=== PATIENT | female | born 1990 | race American Indian/Alaskan Native ===

== ENCOUNTER 2017-10-04 05:08 | Emergency (ER) | payer MEDICAID ==
[2017-10-04] MEDS ORDERED: NACL 0.9% 1000 ML 1,000 ML IV ONE (05:33)
[2017-10-04 06:06] LABS: Amorphous Crystals,Urine Few; Bilirubin,Urine NEG (Negative); Blood,Urine SM (Negative); Color,Urine Straw (Yellow); Mucus,Urine FEW /HPF; Protein,Urine <15 mg/dL mg/dL (Negative); RBC,Urine < 1.0 /HPF (0.0-6.0)
--- NOTE | 2017-10-04 06:24 | Emergency Department Report ---
ED General Adult HPI - General Chief complaint: Alcohol Stated complaint: ETOH Source: EMS Mode of arrival: Stretcher Limitations: Altered Mental Status - History of Present Illness Initial comments: The patient is here with her significant other. They both state that she had too much to drink last night. She is reasonably awake at this time. She is chatting on the cell phone and not particularly interested in medical care. She states that she is ready to home. She offers no specific complaint. Left state that the patient is not well used alcohol and was told going in and out last night. She is awake alert and oriented 3 now. No injury or pain is reported. -: Gradual, hour(s) Associated Symptoms: denies other symptoms - Related Data Home Medications Medication Instructions Recorded Confirmed Last Taken Acetaminophen [Tylenol] 650 mg PO Q6HR PRN 03/21/16 03/21/16 03/21/16 08:00 1 Allergies Allergy/AdvReac Type Severity Reaction Status Date / Time No Known Allergies Allergy Verified 03/21/16 13:19 ED Review of Systems ROS: Stated complaint: ETOH Other details as noted in HPI Constitutional: denies: chills, fever Eyes: denies: eye pain, eye discharge, vision change ENT: denies: ear pain, throat pain Respiratory: denies: cough, shortness of breath, wheezing Cardiovascular: denies: chest pain, palpitations Endocrine: no symptoms reported Gastrointestinal: denies: abdominal pain, nausea, diarrhea Genitourinary: denies: urgency, dysuria, discharge Musculoskeletal: denies: back pain, joint swelling, arthralgia Skin: denies: rash, lesions Neurological: denies: headache, weakness, paresthesias Psychiatric: denies: anxiety, depression Hematological/Lymphatic: denies: easy bleeding, easy bruising ED Past Medical Hx - Past Medical History Previous Medical History?: Yes Hx Hypertension: No Hx Diabetes: No Hx Deep Vein Thrombosis: No Hx Renal Disease: No Hx Sickle Cell Disease: No Hx Seizures: No Hx Asthma: No Hx HIV: No - Social History Smoking Status: Never Smoker Substance Use Type: Alcohol - Medications Home Medications: Home Medications Medication Instructions Recorded Confirmed Last Taken Type Acetaminophen [Tylenol] 650 mg PO Q6HR PRN 03/21/16 03/21/16 03/21/16 08:00 History 1 ED Physical Exam - General Limitations: Altered Mental Status General appearance: alert, in no apparent distress - Head Head exam: Present: atraumatic, normocephalic - Eye Eye exam: Present: normal appearance, PERRL, EOMI. Absent: scleral icterus - ENT ENT exam: Present: mucous membranes moist - Neck Neck exam: Present: normal inspection - Respiratory Respiratory exam: Present: normal lung sounds bilaterally. Absent: respiratory distress - Cardiovascular Cardiovascular Exam: Present: regular rate, normal rhythm. Absent: systolic murmur, diastolic murmur, rubs, gallop - GI/Abdominal GI/Abdominal exam: Present: soft, normal bowel sounds. Absent: distended, tenderness, guarding, rebound, rigid - Extremities Exam Extremities exam: Present: normal inspection - Back Exam Back exam: Present: normal inspection. Absent: CVA tenderness (R), CVA tenderness (L) - Neurological Exam Neurological exam: Present: alert, oriented X3, CN II-XII intact. Absent: motor sensory deficit - Psychiatric Psychiatric exam: Present: normal mood, flat affect - Skin Skin exam: Present: warm, dry, intact, normal color. Absent: rash ED Course Vital Signs 10/04/17 10/04/17 10/04/17 05:23 05:35 05:58 Temperature 98 F Pulse Rate 104 H 103 H Respiratory 18 18 10 L Rate Blood Pressure 122/80 O2 Sat by Pulse 99 100 Oximetry 10/04/17 10/04/17 10/04/17 06:00 06:16 06:30 Temperature Pulse Rate 103 H 104 H 103 H Respiratory 16 12 9 L Rate Blood Pressure 122/73 O2 Sat by Pulse 99 100 100 Oximetry ED Medical Decision Making - Lab Data Result diagrams: 10/04/17 05:56 Laboratory Results - last 24 hr 10/04/17 Unknown Urine Color Straw Urine Turbidity Clear Urine pH 6.0 Ur Specific [place] 1.009 Urine Protein <15 mg/dl Urine Glucose (UA) Neg Urine Ketones Neg Urine Blood Sm Urine Nitrite Neg Urine Bilirubin Neg Urine Urobilinogen 2.0 Ur Leukocyte Esterase Neg Urine WBC (Auto) 1.0 Urine RBC (Auto) < 1.0 U Epithel Cells (Auto) 1.0 Amorphous Crystals Few Urine Mucus Few Critical care attestation.: If time is entered above; I have spent that time in minutes in the direct care of this critically ill patient, excluding procedure time. ED Disposition Clinical Impression: Alcohol abuse, Transient alteration of awareness Disposition: DC-01 TO HOME OR SELFCARE Is pt being admited?: No Does the pt Need Aspirin: No Condition: Stable Instructions: Abuse of Alcohol (ED) Additional Instructions: Increase fluids and rest. Return any acute change or problem. Referrals: MK MERCEDES MD [Primary Care Provider] - 3-5 Days Time of Disposition: 06:48
[2017-10-04 06:26] LABS: Benzodiazepines Screen,Urine PRESUMPTIVE NEGATIVE; Cannabinoid Screen,Urine PRESUMPTIVE NEGATIVE; Cocaine Screen,Urine PRESUMPTIVE NEGATIVE; Methadone Screen,Urine PRESUMPTIVE NEGATIVE; Opiate Screen,Urine PRESUMPTIVE NEGATIVE
[2017-10-04 06:33] LABS: Basophils % (Auto) 0.2 % (0.0-1.8); Eosinophils % (Auto) 0.2 % (0.0-4.3); Hemoglobin 12.3 gm/dl (10.1-14.3); Lymphocytes # (Auto) 1.7 K/mm3 (1.2-5.4); Lymphocytes % (Auto) 20.8 % (13.4-35.0); Mean Corpuscular HGB Conc 32 % (30-34); Mean Corpuscular Hemoglobin 31 pg (28-32); Mean Corpuscular Volume 96 fl (79-97); Monocytes # (Auto) 0.5 K/mm3 (0.0-0.8); Monocytes % (Auto) 5.6 % (0.0-7.3); Platelet Count 338 K/mm3 (140-440); Red Blood Count 3.95 M/mm3 (3.65-5.03); Red Cell Distribution Width 13.2 % (13.2-15.2)
[2017-10-04 06:45] LABS: Amphetamine Screen,Urine PRESUMPTIVE POSITIVE
[2017-10-04 06:52] LABS: Alanine Aminotransferase 11 units/L (7-56); Albumin 4.3 g/dL (3.9-5); BUN/Creatinine Ratio 23; Blood Urea Nitrogen 14 mg/dL (7-17); Calcium 8.7 mg/dL (8.4-10.2); Hemolysis Index 9
[2017-10-04 07:05] VITALS: BP 128/78
== END 2017-10-04 08:05 | disposition home or self-care (01) ==
LOC: ED 05:08
DX: F10.10 Alcohol abuse, uncomplicated (principal); R40.4 Transient alteration of awareness
CPT/HCPCS: 36415; 80053; 80307; 81001; 84703; 85025; 96360; 99284; G0480; J7030; 80320

== ENCOUNTER 2018-09-13 10:41 | Outpatient (CLI) | payer MEDICAID ==
[2018-09-13 11:15] VITALS: BP 129/76
[2018-09-13] MEDS ORDERED: LACTATED RINGERS 0 ML ONE (12:07)
[2018-09-13 12:48] LABS: Bacteria,Urine 4+ /HPF (Negative); Bilirubin,Urine NEG (Negative); Blood,Urine SM (Negative); Mucus,Urine 3+ /HPF
[2018-09-13 12:51] LABS: Color,Urine Yellow (Yellow)
--- NOTE | 2018-09-13 14:00 | Ultrasound Report ---
ULTRASOUND OB LIMITED History: well being Technique: Transabdominal ultrasound with Doppler interrogation. Gestation: Single Position: Cephalic Amniotic Fluid: Normal KRISTAL = 13.2 cm Heart Rate: 141 BPM
--- NOTE | 2018-09-13 14:00 | Ultrasound Report ---
ULTRASOUND BIOPHYSICAL PROFILE: History: well being Technique: Transabdominal ultrasound with Doppler interrogation. 2 - breathing movements 2 - movements 2 - posture and tone 2 - Qualitative amniotic fluid volume 8 - TOTAL SCORE OF POSSIBLE 8 Heart Rate (bpm) 143
== END 2018-09-13 14:06 | disposition home or self-care (01) ==
LOC: TRG 10:41
PROVIDERS: ATTEND Obstetrics & Gynecology
DX: O47.1 False labor at or after 37 completed weeks of gestation (principal); Z3A.40 40 weeks gestation of pregnancy
CPT/HCPCS: 59025; 76815; 76819; 81001; J7120

== ENCOUNTER 2018-09-13 21:57 | Inpatient (IN) | payer MEDICAID ==
[2018-09-13] MEDS ORDERED: BRETHINE IVP PRN (22:21)
[2018-09-13] MEDS ORDERED: MINERAL OIL PO PRN (22:21)
[2018-09-13] MEDS ORDERED: XYLOCAINE 2% INFILTRATI ONE ×2 (22:21→23:14)
[2018-09-13] MEDS ORDERED: SUBLIMAZE IV PRN (22:21)
[2018-09-13] MEDS ORDERED: BRETHINE SUB-Q PRN (22:21)
[2018-09-13] MEDS ORDERED: LACTATED RINGERS 1,000 ML IV SCH ×2 (23:00→23:45)
[2018-09-13] MEDS ORDERED: PITOCin/NS 20 UNIT/1000ML DRIP 20 UNITS/1,000 ML BAG IV SCH (23:00)
--- NOTE | 2018-09-13 23:21 | History and Physical Report ---
History of Present Illness Date of examination: 09/13/18 (arrived in active labor) Date of admission: 09/13/18 22:24 Past History - Obstetrical History Expected Date of Delivery: 09/13/18 Actual Gestation: 40 Week(s) 0 Day(s) : 7 Para: 3 Hx # Term Pregnancies: 3 Number of Pregnancies: 0 Spontaneous Abortions: 1 Induced : 2 Number of Living Children: 3 Medications and Allergies Allergies Allergy/AdvReac Type Severity Reaction Status Date / Time No Known Allergies Allergy Verified 03/21/16 13:19 Home Medications Medication Instructions Recorded Confirmed Last Taken Type No Known Home Medications [No 09/13/18 09/13/18 Unknown History Reported Home Medications] Active Meds: Active Medications Ephedrine Sulfate (Ephedrine Sulfate) 10 mg IV Q2M PRN PRN Reason: Hypotension Fentanyl (Sublimaze) 100 mcg IV Q2H PRN PRN Reason: Labor Pain Lactated Ringer's (Lactated Ringers) 1,000 mls @ 125 mls/hr IV DIRECT DERICK Oxytocin/Sodium Chloride (Pitocin/Ns 20 Unit/1000ml Drip) 20 units in 1,000 mls @ 125 mls/hr IV DIRECT DERICK Mineral Oil (Mineral Oil) 30 ml PO QHS PRN PRN Reason: Constipation Terbutaline Sulfate (Brethine) 0.25 mg SUB-Q ONCE PRN PRN Reason: Hyperstimulation/Hypertonicity Terbutaline Sulfate (Brethine) 0.25 mg IVP ONCE PRN PRN Reason: Hyperstimulation/Hypertonicity - Vital Signs Vital signs: Vital Signs Pulse BP 91 H 141/82 09/13/18 22:10 09/13/18 22:10 Temp Pulse Resp BP Pulse Ox 99.0 F 91 H 20 141/82 09/13/18 22:32 09/13/18 22:10 09/13/18 22:32 09/13/18 22:10 - Physical Exam Breasts: Positive: deferred Cardiovascular: Regular rate, Normal S1, Normal S2 Lungs: Positive: Normal air movement Abdomen: Positive: normal appearance, soft, normal bowel sounds. Negative: distention, tenderness Genitourinary (Female): Positive: normal external genitalia Vulva: both: normal Vagina: Positive: normal moisture. Negative: discharge Cervix: Negative: lesion, discharge Uterus: Positive: normal size, normal contour Adnexa: both: normal Anus/Rectum: Positive: normal perianal skin, heme negative. Negative: rectal mass, hemorrhoids Extremities: Positive: normal Deep Tendon Reflex Grade: Normal +2 - Obstetrical FHR: category 1 Uterine Contraction Monitor Mode: External Cervical Dilatation: 9 (BBOW) Cervical Effacement Percentage: 100 station: -1 Uterine Contraction Pattern: Regular Uterine Tone Measurement Phase: Resting Uterine Contraction Intensity: Moderate Results All other labs normal. HBsAg Screen Negative Negative *1 RPR Non Reactive Non Reactive *2 Rubella Antibodies, IgG 1.18 index Immune >0.99 *3 Non-immune <0.90 Equivocal 0.90 - 0.99 Immune >0.99 ABO Grouping O *4 Rh Factor Positive *5 Please note: Prior records for this patient's ABO / Rh type are not available for additional verification. Antibody Screen See Final Results Negative *6 Tests: (2) Ab Scr+Antibody ID ([id number]) ! Antibody Screen [A] Positive Negative *7 ! Antibody Id. #1 [id number] *8 The patient's serum showed nonspecific reactivity in the antiglobulin phase of testing. Additional testing did not identify a clinically significant antibody. It is possible that the antibody is too weak to identify. We recommend repeat testing in 4 weeks. ! Odalys Titer #1 <No Reported Value> *9 ! Antibody Id. #2 <No Reported Value> *10 ! Odalys Titer #2 <No Reported Value> *11 Tests: (3) Profile I ([id number]) WBC [H] 12.8 x10E3/uL 3.4-10.8 *12 RBC [L] 3.55 x10E6/uL 3.77-5.28 *13 Hemoglobin [L] 11.0 g/dL 11.1-15.9 *14 Hematocrit 35.4 % 34.0-46.6 *15 MCV [H] 100 fL 79-97 *16 MCH 31.0 pg 26.6-33.0 *17 MCHC [L] 31.1 g/dL 31.5-35.7 *18 RDW 13.5 % 12.3-15.4 *19 Platelets 294 x10E3/uL 150-379 *20 Neutrophils 76 % Not Estab. *21 Lymphs 18 % Not Estab. *22 Monocytes 5 % Not Estab. *23 Eos 1 % Not Estab. *24 Basos 0 % Not Estab. *25 ! Immature Cells <No Reported Value> *26 Neutrophils (Absolute) [H] 9.8 x10E3/uL 1.4-7.0 *27 Lymphs (Absolute) 2.3 x10E3/uL 0.7-3.1 *28 Monocytes(Absolute) 0.6 x10E3/uL 0.1-0.9 *29 Eos (Absolute) 0.1 x10E3/uL 0.0-0.4 *30 Baso (Absolute) 0.0 x10E3/uL 0.0-0.2 *31 ! Immature Granulocytes 0 % Not Estab. *32 ! Immature Grans (Abs) 0.0 x10E3/uL 0.0-0.1 *33 ! NRBC <No Reported Value> *34 Hematology Comments: <No Reported Value> *35 Tests: (4) AFP Tetra ([id number]) ! Results Report *36 ! Test Results: *Screen Negative* *37 ! Tests: (5) Panel [id number] ([id number]) HIV Screen 4th Generation wRfx Non Reactive Non Reactive *60 Tests: (6) HCV Ab w/Rflx to Verification ([id number]) ! HCV Ab <0.1 s/co ratio 0.0-0.9 *61 Tests: (7) Comment: ([id number]) ! Comment: SPRCS *62 Non reactive HCV antibody screen is consistent with no HCV infection, unless recent infection is suspected or other evidence exists to indicate HCV infection. Tests: (8) Urine Culture, Routine ([id number]) Urine Culture, Routine Final report *63 Tests: (9) Result ([id number]) ! Result 1 No growth *64 Assessment and Plan Pt arrive 5-6 cm and quickly progressed to 9 cm. 28yo @ 40 weeks in active labor GBS negative Orders in EMR
[2018-09-13 23:24] LABS: Hemoglobin 11.5 gm/dl (10.1-14.3); Mean Corpuscular HGB Conc 32 % (30-34); Mean Corpuscular Volume 91 fl (79-97); Platelet Count 237 K/mm3 (140-440); Red Blood Count 3.94 M/mm3 (3.65-5.03); Red Cell Distribution Width 15.8 % (13.2-15.2)
[2018-09-13] MEDS ORDERED: PITOCin/NS 30 UNIT/500ML 30 UNITS/500 ML BAG IV SCH (23:45)
[2018-09-14] MEDS ORDERED: ZOFRAN IV PRN (01:06)
[2018-09-14] MEDS ORDERED: PHENERGAN PO PRN (01:06)
[2018-09-14] MEDS ORDERED: DULCOLAX PR PRN (01:06)
[2018-09-14] MEDS ORDERED: MILK OF MAGNESIA PO PRN (01:06)
[2018-09-14] MEDS ORDERED: LANSINOH TP PRN (01:06)
[2018-09-14] MEDS ORDERED: BENADRYL PO PRN (01:06)
[2018-09-14] MEDS ORDERED: TUCKS PAD TP PRN (01:06)
[2018-09-14] MEDS ORDERED: TYLENOL PO PRN (01:06)
--- NOTE | 2018-09-14 01:06 | Procedure Note ---
OB Delivery Note - Delivery Date of Delivery: 09/14/18 [employer] Agent Financial Report Service: [facility] Estimated blood loss: 300cc - Vaginal Delivery presentation: vertex Delivery position: OA Intrapartum events: none Delivery induction: none Delivery augmentation: rupture of membranes Delivery monitor: external FHT, external uterine, internal FHT Route of delivery: Delivery placenta: spontaneous Delivery cord: 3 umbilical vessels Episiotomy: none Delivery laceration: none Anesthesia: intravenous Delivery comments: live born female over intact perineum Baby skin to skin on mom's abdomen cord blood obtained Placenta and membrane delivered complete and intact, 3 vessel cord. Pitocin IVFs 8/9, EBL 300, Wgt 8-7 Mom and baby remain LDR stable. - Infant A at 1 minute: 8 at 5 minutes: 9 Infant Gender: Female (wgt 8-7)
[2018-09-14] MEDS ORDERED: SODIUM CHLORIDE FLUSH SYRINGE 10 ML IV NR (02:00)
[2018-09-14] MEDS: IBUPROFEN PO SCH ×3 (02:30→18:24)
[2018-09-14] MEDS: PRENATAL VITAMIN PO SCH (11:12)
[2018-09-14] MEDS: COLACE PO SCH ×2 (11:13→21:50)
[2018-09-14 13:04] LABS: Hematocrit 31.6 % (30.3-42.9); Hemoglobin 9.9 gm/dl (10.1-14.3)
[2018-09-15] MEDS: IBUPROFEN PO SCH ×2 (01:13→12:17)
[2018-09-15] MEDS ORDERED: BOOSTRIX IM ONE (06:00)
[2018-09-15] MEDS ORDERED: M-M-R II VACCINE SUB-Q ONE (06:00)
--- NOTE | 2018-09-15 10:27 | Discharge Summary ---
Providers - Providers Date of Admission: 09/13/18 22:24 Date of discharge: 09/15/18 (patient desires discharge today) Attending physician: XANDER TOM Primary care physician: XANDER TOM Hospitalization Reason for admission: labor Condition: Good Pertinent studies: post delivery h&h 9.9/31.6 Procedures: Hospital course: uncomplicated and course Disposition: DC-01 TO HOME OR SELFCARE Core Measure Documentation - Palliative Care Palliative Care/ Comfort Measures: Not Applicable - Core Measures Any of the following diagnoses?: none Exam - Constitutional Vitals: Temp Pulse Resp BP Pulse Ox 97.9 F 81 20 117/70 95 09/14/18 11:48 09/14/18 11:48 09/14/18 18:24 09/14/18 11:48 09/14/18 11:48 General appearance: Present: no acute distress, well-nourished - EENT Eyes: Present: PERRL ENT: hearing intact, clear oral mucosa - Neck Neck: Present: supple, normal ROM - Respiratory Respiratory effort: normal Respiratory: bilateral: CTA - Cardiovascular Rhythm: regular Heart Sounds: Present: S1 & S2. Absent: rub, click - Extremities Extremities: pulses symmetrical, No edema Peripheral Pulses: within normal limits - Abdominal General gastrointestinal: Present: soft, non-tender, non-distended, normal bowel sounds Female genitourinary: Present: normal - Integumentary Integumentary: Present: clear, warm, dry - Musculoskeletal Musculoskeletal: gait normal, strength equal bilaterally - Psychiatric Psychiatric: appropriate mood/affect, intact judgment & insight - Neurologic Neurologic: CNII-XII intact, moves all extremities - Additional findings Additional findings: fundus firm, ML, U/1. Bleeding is minimal. Patient reports breast and bottle feeding, both going well, no complaints. She reports pain is minimal, well controlled with ibuprofen. VSSAF. Perineum intact. No complaints. Patient desires discharge today. Plan Activity: no restrictions Diet: regular Follow up with: XANDER TOM MD [Primary Care Provider] - 10/13/18 (Congratulations! P lease call [phone] to schedule your appointment in 4 weeks. Please call with any questions or concerns. )
[2018-09-15] MEDS: COLACE PO SCH (12:15)
[2018-09-15] MEDS: PRENATAL VITAMIN PO SCH (12:15)
[2018-09-15 16:59] VITALS: BP 116/82
== END 2018-09-15 17:00 | disposition home or self-care (01) | DRG 775 ==
LOC: TRG 21:57 → LD 22:24 → OB 09-14 02:20
PROVIDERS: ADMIT Obstetrics & Gynecology; ATTEND Obstetrics & Gynecology
PROC: 10E0XZZ Delivery of Products of Conception, External Approach (ICD-10-PCS; principal; 2018-09-14)
DX: O80 Encounter for full-term uncomplicated delivery (principal); Z3A.40 40 weeks gestation of pregnancy; Z37.0 Single live birth
CPT/HCPCS: 36415; 59025; 76815; 76819; 81001; 85014; 85018; 85027; 86592; 86850; 86900; 86901; G0378; J2590; J3010; J7120